=== PATIENT | male | born 1995 | race Caucasian/White ===

== ENCOUNTER 2019-05-06 20:49 | Emergency (ER) | payer MEDICAID ==
[~2019-05-06] VITALS: Ht 175.3 cm; Wt 67.0 kg
[~2019-05-06 20:49] MED LIST: ALBU18HF2 IH; AMPH12.52 PO; IBUP-1984 PO
[2019-05-06 20:56] VITALS: BP 157/64
== END 2019-05-06 21:27 | disposition home or self-care (01) ==
LOC: ER 20:49
DX: L98.8 Other specified disorders of the skin and subcutaneous tissue (principal); R61 Generalized hyperhidrosis; F15.90 Other stimulant use, unspecified, uncomplicated; F11.90 Opioid use, unspecified, uncomplicated; Z98.890 Other specified postprocedural states; Z79.899 Other long term (current) drug therapy
CPT/HCPCS: 99284

== ENCOUNTER 2023-02-01 15:28 | Emergency (ER) | payer MEDICAID ==
[~2023-02-01] VITALS: Ht 177.8 cm; Wt 95.5 kg
[2023-02-01 15:58] VITALS: BP 137/68
[2023-02-01] MEDS ORDERED: BUPR1FIL3 SL (16:13)
== END 2023-02-01 16:47 | disposition home or self-care (01) ==
LOC: ER 15:28
DX: F11.10 Opioid abuse, uncomplicated (principal); Z79.899 Other long term (current) drug therapy
CPT/HCPCS: 99283

== ENCOUNTER 2023-03-03 21:28 | Emergency (ER) | payer MEDICAID ==
[~2023-03-03] VITALS: Ht 177.8 cm; Wt 76.4 kg
[2023-03-03 21:56] VITALS: BP 150/95
[2023-03-04] MEDS ORDERED: sulfamethoxazole/trimethoprim DS (800/160mg) tablet PO ONE (03:35)
[2023-03-04] MEDS ORDERED: ondansetron 4mg rapidly disintigrating tab PO ONE (03:35)
[2023-03-04] MEDS ORDERED: SULF1TAB49 PO (03:38)
== END 2023-03-04 03:42 | disposition home or self-care (01) ==
LOC: ER 21:29
DX: L02.416 Cutaneous abscess of left lower limb (principal); L03.116 Cellulitis of left lower limb; F17.200 Nicotine dependence, unspecified, uncomplicated
CPT/HCPCS: 99283

== ENCOUNTER 2023-12-26 18:55 | Emergency (ER) | payer MEDICAID ==
[~2023-12-26] VITALS: Ht 177.8 cm; Wt 72.0 kg
[2023-12-26 20:18] VITALS: BP 120/81; PULSE 84; RESP 20; TEMP 99.6; O2SAT 100
[2023-12-26] MEDS ORDERED: CEFD300C3 PO (21:44)
== END 2023-12-26 21:48 | disposition home or self-care (01) ==
LOC: ER 18:56
DX: J20.9 Acute bronchitis, unspecified (principal)
CPT/HCPCS: 71045; 87502; 87503; 99284